=== PATIENT | male | born 1970 | race Caucasian/White ===

== ENCOUNTER 2018-02-21 07:56 | Emergency (ER) | payer BC ==
[~2018-02-21] VITALS: Ht 175.3 cm; Wt 862.3 kg
[~2018-02-21 07:56] MED LIST: CODIENE; MOTRIN
--- NOTE | 2018-02-21 08:10 | NUR ---
Pt.was seen by .
[2018-02-21] MEDS ORDERED: IV NORMAL SALINE 1000 ML BAG IV ONE (08:15)
[2018-02-21] MEDS ORDERED: KETOROLAC TROMETHAMINE 15 MG INJ IV ONE (08:15)
[2018-02-21] MEDS ORDERED: MORPHINE SULFATE 2 MG/1 ML DISP.SYRIN IV ONE (08:15)
[2018-02-21] MEDS ORDERED: ONDANSETRON 4 MG/2 ML VIAL IV ONE (08:15)
[2018-02-21] MEDS ORDERED: KETOROLAC TROMETHAMINE 30 MG INJ ONE (08:26)
[2018-02-21] MEDS ORDERED: ONDANSETRON 4 MG/2 ML VIAL ONE (08:26)
[2018-02-21] MEDS ORDERED: MORPHINE SULFATE 4 MG/1 ML DISP.SYRIN ONE (08:26)
[2018-02-21 09:45] VITALS: BP 131/75
== END 2018-02-21 09:50 | disposition home or self-care (01) ==
LOC: ER 07:58
DX: N20.0 Calculus of kidney (principal); Z79.899 Other long term (current) drug therapy
CPT/HCPCS: 74176; 96374; 96375; 99284; A4663; J1885; J2270; J2405; J7030

== ENCOUNTER 2018-06-06 19:20 | Emergency (ER) | payer BC ==
[~2018-06-06] VITALS: Ht 177.8 cm; Wt 86.2 kg
[2018-06-06] MEDS ORDERED: CYCLOBENZAPRINE 5 MG TABLET (19:39)
--- NOTE | 2018-06-06 20:05 | NUR ---
Dr. Landry at bedside for MSE.
[2018-06-06] MEDS ORDERED: HYDROMORPHONE 1 MG/1 ML DISP.SYRIN IV ONE ×2 (20:15→21:00)
[2018-06-06] MEDS ORDERED: IV NORMAL SALINE 1000 ML BAG IV ONE (20:15)
[2018-06-06] MEDS ORDERED: KETOROLAC TROMETHAMINE 30 MG INJ IVP ONE (20:15)
[2018-06-06] MEDS ORDERED: ONDANSETRON 4 MG/2 ML VIAL IV ONE (20:15)
[2018-06-06] MEDS ORDERED: KETOROLAC TROMETHAMINE 30 MG INJ ONE (20:21)
[2018-06-06] MEDS ORDERED: HYDROMORPHONE 2 MG/1 ML DISP.SYRIN ONE (20:21)
[2018-06-06] MEDS ORDERED: ONDANSETRON 4 MG/2 ML VIAL ONE ×2 (20:21→21:01)
--- NOTE | 2018-06-06 20:40 | NUR ---
Pt states pain a little better now, went from 10 now down to a 5, no more nausea.
[2018-06-06] MEDS ORDERED: ONDANSETRON IV *ER 4 MG/2 ML VIAL IV ONE (21:00)
--- NOTE | 2018-06-06 21:00 | NUR ---
Pt provided urine sample, sent to lab.
[2018-06-06] MEDS ORDERED: HYDROMORPHONE 1 MG/1 ML DISP.SYRIN ONE (21:01)
[2018-06-06 21:17] LABS: *BILIRUBIN,URIN NEGATIVE (NEGATIVE); *BLOOD, URINE Trace-intact (NEGATIVE); *COLOR,URINE YELLOW (YELLOW); *KETONES,URINE TRACE (NEGATIVE); *PROTEIN,URINE NEGATIVE (NEGATIVE); *UROBILINOGEN,URINE 0.2 E.U./dl (NORMAL); LEUKOCYTE ESTERASE ,URINE TRACE (NEGATIVE); NITRITE, URINE POSITIVE (NEGATIVE); UGLUCOSE NEGATIVE (NEGATIVE)
[2018-06-06 21:22] LABS: *CLARITY,URINE SLIGHTLY HAZY (CLEAR)
[2018-06-06 21:24] LABS: BACTERIA,URINE MODERATE /HPF (NONE SEEN); CALCIUM OXALATE CRYSTALS,UR MODERATE /HPF (NONE SEEN); MUCUS,URINE MANY /LPF (0-FEW)
--- NOTE | 2018-06-06 21:28 | NUR ---
Patient discharged to home in stable conditon. Written and verbal after care instructions given. Patient verbalizes understanding of instructions. Pt ambulated out of ER with steady gait, no acute signs of distress, VSS, all belongings taken, IV site discontinued.
[2018-06-06 21:30] VITALS: BP 130/90
== END 2018-06-06 21:31 | disposition home or self-care (01) ==
LOC: ER 19:20
DX: N20.0 Calculus of kidney (principal)
CPT/HCPCS: 81001; 96374; 96375; 96376; 99284; A4663; J1170 ×2; J1885; J2405 ×2; J7030